=== PATIENT | female | born 1980 | race Caucasian/White ===

== ENCOUNTER → 2019-07-31 | Outpatient (CLI) | payer MEDICAID ==
--- NOTE | 2019-07-31 15:00 | RADIOLOGY REPORT (SQ) ---
EXAM DESCRIPTION: U/S [id number] TRNABD 1GES W/ODOP IMAGES COMPLETED DATE/TIME: 07/31/2019 2:37 pm REASON FOR STUDY: Z34.82 ENCOUNTER FOR SUPRVSN OF NORMAL , SECOND TRIMESTER Z34.82 ENCOUNT ER FOR SUPRVSN OF NORMAL , SECOND TRI COMPARISON: None. TECHNIQUE: Transabdominal static and realtime grayscale images acquired of the pelvis. Additional se lected spectral and color Doppler images recorded. All images stored on PACs. [facility]: Unavailable. CLINICAL DATES: LMP 04/03/2019. EGA based on LMP 17 weeks 0 days. LIMITATIONS: None. FINDINGS: FETUS: Single Living intrauterine . ULTRASOUND EGA: 13 weeks 1 day. ULTRASOUND AMIAR: 02/04/2020. CRL: 6.8 cm. FHR: 175 beats per minute. SURVEY: Too early to assess. AMNIOTIC FLUID: Too early to assess. PLACENTA: Too early to assess. SUBCHORIONIC BLEED: None. UTERUS: The uterus measures 13.4 x 11.8 x 9.8 cm. CERVICAL LENGTH: 3.4 cm. Closed. RIGHT ADNEXA: Unable to visualize the right ovary. There is no adnexal mass. LEFT ADNEXA: The left ovary measures 2.3 x 2.2 x 1.7 cm and on Doppler there is intact color flow wit hin the ovarian stroma. There is no adnexal mass. FREE FLUID: None. OTHER: No other finding. IMPRESSION: SINGLE LIVE INTRAUTERINE . EGA 13 weeks 1 day based on the ultrasound which is discordant with the EGA based on LMP. Based on A COG criteria the EGA should be changed to reflect the ultrasound. Trimester of : First trimester - 0 to 13 weeks. TECHNICAL DOCUMENTATION: JOB ID: [id number] 2010 [employer]- All Rights Reserved rev-08/04 Reading location - IP/workstation name: [email or web address]
== END ==
LOC: RAD 13:59
PROVIDERS: ATTEND Midwife
DX: Z34.81 Encounter for supervision of other normal pregnancy, first trimester (principal); Z3A.13 13 weeks gestation of pregnancy
CPT/HCPCS: 76801